=== PATIENT | male | born 1940 | race Caucasian/White ===

== ENCOUNTER → 2016-05-25 | Outpatient (CLI) | payer MEDICARE, OTHER ==
[~2016-05-25] MED LIST: CLARITIN10 M2 PO; MULTI-VITAMIN1 EACH PO; OMNICEF 300 MG300 MG PO; PROTONIX 40 MG40 M1 PO; TYLENOL 325MG325 MG PO
== END ==
DX: M25.562 Pain in left knee (principal)
CPT/HCPCS: 93971

== ENCOUNTER 2021-07-04 13:27 | Emergency (ER) | payer MEDICARE, OTHER ==
[~2021-07-04 13:27] MED LIST changes: +ANTIVERT 25MG T25 MG PO; +BACTRIM DS TAB1 EACH PO; +OMEPRAZOLE20 M1 PO; +VITAMIN B-121000 MCG IM
[2021-07-04 14:34] LABS: HEMOGLOBIN 16.8 gm/dl (14.0-17.5); RED BLOOD COUNT 5.54 M/UL (4.20-5.50); WHITE BLOOD COUNT 9.1 K/UL (4.5-11.0)
[2021-07-04] MEDS ORDERED: ZOFRAN ODT 4 MG4 MG PO (16:50)
[2021-07-05] MEDS ORDERED: LISINOPRIL5 MG PO (23:29)
[2021-07-05] MEDS ORDERED: MELOXICAM15 MG PO (23:30)
[2021-07-05] MEDS ORDERED: LORATADINE10 MG PO (23:30)
[2021-07-05] MEDS ORDERED: FLOMAX 0.4 MG0.4 MG PO (23:31)
== END 2021-07-04 17:10 | disposition home or self-care (01) ==
LOC: ER1 13:27
PROVIDERS: Family Medicine
DX: N17.9 Acute kidney failure, unspecified (principal); E86.0 Dehydration; R19.7 Diarrhea, unspecified; R11.2 Nausea with vomiting, unspecified; Z20.822 Contact with and (suspected) exposure to COVID-19; I10 Essential (primary) hypertension
CPT/HCPCS: 0240U; 80053; 83690; 83735; 85025; 93005; 96374; 99284; J2405; J7030

== ENCOUNTER 2021-07-05 14:12 | Inpatient (IN) | payer OTHER ==
[~2021-07-05] VITALS: Ht 167.6 cm; Wt 63.5 kg
[~2021-07-05 14:12] MED LIST changes: +ZOFRAN ODT 4 MG4 MG PO
[2021-07-05 16:55] LABS: HEMOGLOBIN 16.5 gm/dl (14.0-17.5); RED BLOOD COUNT 5.41 M/UL (4.20-5.50)
[2021-07-05 19:46] LABS: ADENOVIRUS F 40/41 Not Detected (Negative); ASTROVIRUS Not Detected (Negative); CAMPYLOBACTER Not Detected (Negative); CRYPTOSPORIDIUM Not Detected (Negative); E.COLI 0157 Not Detected (Negative); ENTAMOEBA HISTOLYTICA Not Detected (Negative); ENTEROAGGREGATIVE E.COLI (EAEC Not Detected (Negative); ENTEROPATHOGENIC E.COLI (EPEC) Not Detected (Negative); ENTEROTOXIGENIC E.COLI (ETEC) Not Detected (Negative); GIARDIA LAMBLIA Not Detected (Negative); NOROVIRUS GI/GII Not Detected (Negative); PLESIOMONAS SHIGELLOIDES Not Detected (Negative); SALMONELLA Not Detected (Negative); SAPOVIRUS Not Detected (Negative); SHIG/ENTEROINVAS.ECOLI (EIEC) Not Detected (Negative); SHIGA-LIK TOX.PRO.E.COLI (STEC Not Detected (Negative); VIBRIO Not Detected (Negative); VIBRIO CHOLERAE Not Detected (Negative); YERSINIA ENTEROCOLITICA Not Detected (Negative)
[2021-07-05] MEDS ORDERED: LISINOPRIL5 MG PO (23:29)
[2021-07-05] MEDS ORDERED: LORATADINE10 MG PO (23:30)
[2021-07-05] MEDS ORDERED: MELOXICAM15 MG PO (23:30)
[2021-07-05] MEDS ORDERED: FLOMAX 0.4 MG0.4 MG PO (23:31)
[2021-07-06 05:53] LABS: RED BLOOD COUNT 4.98 M/UL (4.20-5.50)
[2021-07-06 05:54] LABS: WHITE BLOOD COUNT 8.4 K/UL (4.5-11.0)
[2021-07-06 08:11] LABS: CLOSTRIDIUM DIFFICILE TOX A/B Not Detected (Negative)
[2021-07-06 08:12] LABS: ROTOVIRUS A DETECTED (Negative)
[2021-07-07 06:47] LABS: HEMOGLOBIN 13.6 gm/dl (14.0-17.5); RED BLOOD COUNT 4.64 M/UL (4.20-5.50)
[2021-07-07 07:09] LABS: WHITE BLOOD COUNT 4.1 K/UL (4.5-11.0)
[2021-07-07] MEDS ORDERED: ZOFRAN 4 MG TAB4 MG PO (09:28)
[2021-07-08 05:55] LABS: HEMOGLOBIN 12.9 gm/dl (14.0-17.5); RED BLOOD COUNT 4.33 M/UL (4.20-5.50); WHITE BLOOD COUNT 3.4 K/UL (4.5-11.0)
[2021-07-08 06:20] LABS: BUN/CREATININE RATIO 25 (0-10)
== END 2021-07-08 12:31 | disposition home health service (06) | DRG 872 ==
LOC: ER1 14:12 → MED SURG 4 18:56 → CDU 18:56 → MED SURG 4 20:04
PROVIDERS: Internal Medicine; ADMIT Internal Medicine
DX: A41.9 Sepsis, unspecified organism (principal); N17.9 Acute kidney failure, unspecified; E87.2 Acidosis; A09 Infectious gastroenteritis and colitis, unspecified; Z20.822 Contact with and (suspected) exposure to COVID-19; R65.20 Severe sepsis without septic shock; I10 Essential (primary) hypertension; N40.0 Benign prostatic hyperplasia without lower urinary tract symptoms; R53.81 Other malaise; K31.84 Gastroparesis; M25.511 Pain in right shoulder; M19.90 Unspecified osteoarthritis, unspecified site; Z85.46 Personal history of malignant neoplasm of prostate; Z98.890 Other specified postprocedural states; Z79.899 Other long term (current) drug therapy; Z90.49 Acquired absence of other specified parts of digestive tract
CPT/HCPCS: 36415; 51702; 71045; 80048; 80053; 81001; 82272; 82550; 82553; 83605; 83735; 83880; 84484; 85025; 85027; 87040; 87449; 87507; 93005; 96374; 97161; 97166; 99285; J1650; J2405; J2543; J7030